=== PATIENT | male | born 1995 | race Caucasian/White ===

== ENCOUNTER 2016-08-04 13:17 | Emergency (ER) | payer BC | END 2016-08-04 17:00 | disposition home or self-care (01) | LOC: D.ER 13:17 | DX: S83.91XA Sprain of unspecified site of right knee, initial encounter (principal); X58.XXXA Exposure to other specified factors, initial encounter; Y93.39 Activity, other involving climbing, rappelling and jumping off; Y92.099 Unspecified place in other non-institutional residence as the place of occurrence of the external cause; F32.9 Major depressive disorder, single episode, unspecified; F17.200 Nicotine dependence, unspecified, uncomplicated ==

== ENCOUNTER 2016-08-08 10:51 | Emergency (ER) | payer BC | END 2016-08-08 11:15 | disposition left against medical advice (07) | LOC: D.ER 10:51 | DX: M25.561 Pain in right knee (principal) ==

== ENCOUNTER 2016-08-13 11:12 | Emergency (ER) | payer BC | END 2016-08-13 11:55 | disposition home or self-care (01) | LOC: D.ER 11:12 | DX: S83.91XA Sprain of unspecified site of right knee, initial encounter (principal); X58.XXXA Exposure to other specified factors, initial encounter; Y93.89 Activity, other specified; Y92.89 Other specified places as the place of occurrence of the external cause; F32.9 Major depressive disorder, single episode, unspecified; F17.200 Nicotine dependence, unspecified, uncomplicated ==

== ENCOUNTER → 2016-08-20 10:10 | Outpatient (CLI) | payer BC | END | disposition home or self-care (01) | LOC: D.MRI 10:10 | DX: M25.561 Pain in right knee (principal) ==

== ENCOUNTER 2016-09-26 12:19 | Emergency (ER) | payer BC | END 2016-09-26 13:54 | disposition home or self-care (01) | LOC: D.ER 12:19 | DX: R51 Headache (principal) ==

== ENCOUNTER 2016-11-07 05:20 | Day surgery (SDC) | payer BC ==
[~2016-11-07] VITALS: Ht 190.5 cm; Wt 81.6 kg
--- NOTE | ~2016-11-07 | OP ---
PATIENT NAME: RL FAM MEDICAL RECORD: [id number] :95 LOCATION:D.OPS ADMISSION DATE: SURGEON: RL GUNTER DO OPERATION DATE: 11/07/16 SURGEON: Rl Gunter DO COUNTER STITCHER: This procedure could not have been performed without the assistance of Tanvi Morales APN. PROCEDURE PERFORMED: Right anterior cruciate ligament reconstruction with hamstring autograft augmented by posterior tibialis allograft. Partial medial meniscectomy. PREPROCEDURE DIAGNOSIS: Right anterior cruciate ligament rupture. POSTPROCEDURE DIAGNOSES: Right anterior cruciate ligament rupture. Right medial meniscus tear. ANESTHESIA: General. TOURNIQUET TIME: 2 hours and 15 minutes. DESCRIPTION OF PROCEDURE: The patient was taken to the operative suite. He was placed in the supine position after informed consent had been obtained in the preoperative area. Anesthesia put him to sleep. Examination of the right knee under anesthesia demonstrated a positive pivot shift test as well as positive Trice's test. The right knee was then prepped and draped in a sterile fashion and the incision for the graft was marked out. This was all done after a timeout was performed and all parties were agreeable that it was the right anterior cruciate ligament reconstruction and the patient was the correct patient and we were operating on the correct side. Antibiotics were given. Vancomycin due to his penicillin allergy. once all parties agreed, the procedure began. A 6 inch El wrap was then used to exsanguinate the leg and the tourniquet was inflated to 250 millimeters of mercury. The incision for the graft over the pes anserine, just medial to the tibial tubercle was marked out. Incision was taken down to the sartorius fascia and it was incised. The gracilis graft was then attempted to be harvested at first, however, it was not adequate graft. The semitendinosus was then harvested and the site of the graft harvest was irrigated and the Ray-Madeleine was placed there. Attention was then drawn to the arthroscopic part of the procedure. The lateral portal was first established and the and the camera was introduced into the lateral portal. The superior pouch was then inspected not revealing any chondral injuries or loose bodies and the patella the same, no chondral injuries or loose bodies. The trochlea again did not have any chondral injuries or loose bodies. Attention was then drawn to the lateral gutter and no loose bodies were found. The popliteal tendon was noted and picture was taken of it. Attention was then drawn over to the medial side and down the medial gutter which was normal and the medial meniscus was noted to have a tear in the posterior area of the medial meniscus at the red/white section of the meniscus. The anterior cruciate ligament was then viewed and seemed to be pulled off of the femoral insertion and was documented by picture. Attention was then drawn to the medial meniscal tear and was probed and due to the patient's age of 20, attempted to be repaired and failed and a partial medial meniscectomy was then performed on a posterior section of the medial meniscus OPERATIVE REPORT [id number] RL FAM proximally. 20% of the posterior medial meniscus was removed at that time. Attention was then drawn to prepping the sites for the femoral tunnel and the medial portal was established prior to this. Once the medial meniscal tear was discovered, the medial portal was established. The attention was drawn to the femoral placement of the tunnel for the anterior cruciate ligament graft. The area was debrided with a shaver and the fat pad as well was debrided from the anterior knee to help with visualization. Medial accessory portal was then established for the femoral tunnel and once adequate visualization was obtained the guide was placed in the origin of the anterior cruciate ligament on the femur. The pin was then inserted and loop suture was placed on the end. After that the graft was prepped on the back table and determined that a 9.5 was the correct size. A 10 reamer was then used to make the tunnel in the femur to approximately 25 millimeters and the beef pin was then passed through the femur where the tunnel was positioned and the suture was caught on the other side. The attention was then drawn to the tibial tunnel. The tibial tunnel was established just at the posterior section of the anterior horn of the lateral meniscus and about 7 millimeters in front of the paced cycle length. Again a size 10 reamer was used establish that tunnel in the tibia using a guide set at 50 degrees into the tibia through the prior incision of the graft. The graft was then passed through the tibia and into the femur as a button flipped from the TightRope suspension system on the lateral femur, suturing it, and securing the graft there. It was then advanced into place using the Toggle system. At that time the graft was tightened on the tibial side and the knee was taken through several ranges of motion. It seemed to slightly impinge on the lateral condyle of the femur. Wall plasty was performed as well as small debridement of the graft so it would not impinge. It was noted to be in great position and did not impinge through range of motion. The knee was then held in extension and a size 10 bioabsorbable screw was placed into the tibial tunnel to secure the graft on the tibial side. The scope was then reinserted into the knee and confirmed placement of the graft. The graft was probed and noted to be taut. Trice and pivot shift was then performed on the patient and noted to have a solid endpoint. The excess graft that was hanging out the incision on the tibia was then removed using 11 blade. The graft site was then irrigated copiously with saline and closed. The tourniquet was let down at this time, as it was let down in the middle of the procedure as well and then reinflated with a total time of 2 hours and 15 minutes. The incision over the grafts was then closed with 2-0 Vicryl and 4-0 Monocryl as well as the portals for the scope on the knee. Dressings were put on, Adaptic, 4x4s, and ABD as well as an El wrap and placed into a knee immobilizer. He was awoken and taken to the Post Anesthesia Care Unit in stable condition. RL GUNTER DO CC: [id number] DICTATION DATE: 11/07/16 1200 HEAD CUSTODIAN: DM 11/11/16 0845 [facility] 11/07/16 [place] [id number] [place] [id number]
[~2016-11-07 05:20] MED LIST: HYDROCODONE-APA1 TAB PO
[2016-11-07 06:18] VITALS: BP 103/52; Ht 190.5 cm; Wt 81.6 kg
[2016-11-07] MEDS ORDERED: PERCOCET 5-3251 TAB PO (11:31)
[2016-11-07] MEDS ORDERED: TORADOL10 MG PO (11:32)
[2016-11-07] MEDS ORDERED: BACTRIM DS TABL1 TAB PO (11:33)
--- NOTE | 2016-11-07 11:51 | NUR ---
RECIEVED PT FROM OR, NOTED PT WITH SHAKES ON ARRIVAL, TEMP 95.5 TEMPORAL RECHECKED AXILLARY SAME READING NOTED. ADRY HUGGER BLANKET APPLIED TO WARM PT.
== END 2016-11-07 14:45 | disposition home or self-care (01) ==
LOC: D.OPS 05:20 → D.PAN 07:30 → D.OPS 14:45
DX: S83.511A Sprain of anterior cruciate ligament of right knee, initial encounter (principal); S83.241A Other tear of medial meniscus, current injury, right knee, initial encounter; Z01.812 Encounter for preprocedural laboratory examination

== ENCOUNTER 2017-02-19 12:46 | Emergency (ER) | payer BC ==
[2016-11-07 06:18] VITALS: BMI 22.5
[~2017-02-19 12:46] MED LIST changes: +BACTRIM DS TABL1 TAB PO; +PERCOCET 5-3251 TAB PO; +TORADOL10 MG PO
[2017-02-19 13:42] LABS: BASOPHILS 0.1 % (0-2); HEMOGLOBIN 15.7 g/dL (13.5-17.5); IMMATURE GRANULOCYTES 0.1 % (0-5); LYMPHOCYTES 28.4 % (15-50); MCH 30.3 pg (26.0-34.0); MCHC 34.1 g/dL (31.0-37.0); MCV 88.6 fL (80.0-100.0); MEAN PLATELET VOLUME 9.5 fL (7.4-10.4); MONOCYTES 9.4 % (2-11); PLATELET COUNT 223 10x3/uL (130-400); RBC 5.19 10x6/uL (4.20-6.10); RDW 12.6 % (11.5-14.5)
[2017-02-19 14:00] LABS: APPEARANCE CLEAR (CLEAR); BILIRUBIN NEGATIVE (NEGATIVE); COLOR YELLOW (YELLOW); GLUCOSE NEGATIVE (NEGATIVE); KETONE NEGATIVE (NEGATIVE); NITRITE NEGATIVE (NEGATIVE); PROTEIN NEGATIVE (NEGATIVE); UROBILINOGEN NORMAL (NORMAL)
[2017-02-19 14:06] LABS: ALBUMIN 4.6 g/dL (3.4-5.0); ALKALINE PHOSPHATASE 64 U/L (46-116); BILIRUBIN - TOTAL 0.42 mg/dL (0.2-1.3); CALC OSMOLALITY 276 mosm/kg (275-300); CHLORIDE - SERUM 104 mmol/L (98-107); CREATININE - SERUM 0.9 mg/dL (0.6-1.3); GLUCOSE 99 mg/dL (74-106); PROTEIN - SERUM 8.7 g/dL (6.4-8.2); SODIUM 138 mmol/L (136-145); UREA NITROGEN 14 mg/dL (7-18); eGFR NON AFRICAN AMERICAN > 90 mL/min (90-120)
[2017-02-19 14:08] LABS: UDS - AMPHET NEGATIVE QUAL (NEGATIVE); UDS - BARB NEGATIVE QUAL (NEGATIVE); UDS - BENZO NEGATIVE QUAL (NEGATIVE); UDS - COCAINE NEGATIVE QUAL (NEGATIVE); UDS - OPIATE NEGATIVE QUAL (NEGATIVE); UDS - PCP NEGATIVE QUAL (NEGATIVE); UDS - THC POSITIVE QUAL (NEGATIVE)
[2017-02-19 14:16] LABS: ALT (SGPT) 12 U/L (10-68)
== END 2017-02-19 18:36 | disposition short-term general hospital (02) ==
LOC: D.ER 12:46
PROVIDERS: Emergency Medicine
DX: F41.0 Panic disorder [episodic paroxysmal anxiety] (principal)

== ENCOUNTER 2017-02-26 02:46 | Emergency (ER) | payer BC ==
[2016-11-07 06:18] VITALS: BMI 22.5
== END 2017-02-26 03:36 | disposition home or self-care (01) ==
LOC: D.ER 02:46
DX: S93.402A Sprain of unspecified ligament of left ankle, initial encounter (principal); W10.9XXA Fall (on) (from) unspecified stairs and steps, initial encounter; Y93.89 Activity, other specified; Y92.029 Unspecified place in mobile home as the place of occurrence of the external cause

== ENCOUNTER 2017-03-05 22:58 | Emergency (ER) | payer BC ==
[2016-11-07 06:18] VITALS: BMI 22.5
[2017-03-05 23:51] LABS: BASOPHILS 0.1 % (0-2); EOSINOPHILS 1.3 % (0-7); HEMATOCRIT 42.7 % (42.0-54.0); HEMOGLOBIN 14.4 g/dL (13.5-17.5); IMMATURE GRANULOCYTES 0.1 % (0-5); LYMPHOCYTES 30.9 % (15-50); MCH 30.1 pg (26.0-34.0); MCHC 33.7 g/dL (31.0-37.0); MCV 89.3 fL (80.0-100.0); MEAN PLATELET VOLUME 9.3 fL (7.4-10.4); MONOCYTES 9.7 % (2-11); NEUTROPHILS 57.9 % (40-80); RBC 4.78 10x6/uL (4.20-6.10); RDW 12.8 % (11.5-14.5); WBC 7.6 10x3/uL (4.8-10.8)
[2017-03-05 23:53] LABS: APPEARANCE CLEAR (CLEAR); BILIRUBIN NEGATIVE (NEGATIVE); COLOR YELLOW (YELLOW); GLUCOSE NEGATIVE (NEGATIVE); KETONE NEGATIVE (NEGATIVE); NITRITE NEGATIVE (NEGATIVE); PROTEIN NEGATIVE (NEGATIVE); SPECIFIC GRAVITY 1.015 (1.005-1.020); UROBILINOGEN NORMAL (NORMAL)
[2017-03-05 23:57] LABS: PLATELET COUNT 157 10x3/uL (130-400)
[2017-03-06 00:02] LABS: ALBUMIN 3.9 g/dL (3.4-5.0); ALKALINE PHOSPHATASE 61 U/L (46-116); ALT (SGPT) 23 U/L (10-68); BILIRUBIN - TOTAL 0.32 mg/dL (0.2-1.3); CALC OSMOLALITY 283 mosm/kg (275-300); CALCIUM 9.3 mg/dL (8.5-10.1); CARBON DIOXIDE 31.1 mmol/L (21.0-32.0); CHLORIDE - SERUM 103 mmol/L (98-107); CREATININE - SERUM 0.9 mg/dL (0.6-1.3); GLUCOSE 89 mg/dL (74-106); POTASSIUM - SERUM 3.6 mmol/L (3.5-5.1); SODIUM 142 mmol/L (136-145); UREA NITROGEN 17 mg/dL (7-18); eGFR NON AFRICAN AMERICAN > 90 mL/min (90-120)
[2017-03-06 00:04] LABS: UDS - AMPHET NEGATIVE QUAL (NEGATIVE); UDS - BARB NEGATIVE QUAL (NEGATIVE); UDS - BENZO NEGATIVE QUAL (NEGATIVE); UDS - COCAINE NEGATIVE QUAL (NEGATIVE); UDS - OPIATE POSITIVE QUAL (NEGATIVE); UDS - PCP NEGATIVE QUAL (NEGATIVE); UDS - THC POSITIVE QUAL (NEGATIVE)
[2017-03-06 00:14] LABS: VALPROIC ACID (DEPAKOTE) 51.3 ug/mL (50.0-100.0)
== END 2017-03-06 01:01 | disposition home or self-care (01) ==
LOC: D.ER 22:58
PROVIDERS: Emergency Medicine
DX: F45.8 Other somatoform disorders (principal); R11.2 Nausea with vomiting, unspecified; T65.891A Toxic effect of other specified substances, accidental (unintentional), initial encounter

== ENCOUNTER 2017-04-05 20:09 | Emergency (ER) | payer BC ==
[2016-11-07 06:18] VITALS: BMI 22.5
== END 2017-04-05 21:50 | disposition home or self-care (01) ==
LOC: D.ER 20:09
DX: K04.7 Periapical abscess without sinus (principal); K08.89 Other specified disorders of teeth and supporting structures; F17.200 Nicotine dependence, unspecified, uncomplicated

== ENCOUNTER 2017-09-20 14:04 | Emergency (ER) | payer BC ==
[2016-11-07 06:18] VITALS: BMI 22.5
[2017-09-20 15:12] LABS: BASOPHILS 0.1 % (0-2); EOSINOPHILS 0.1 % (0-7); HEMATOCRIT 41.1 % (42.0-54.0); HEMOGLOBIN 14.5 g/dL (13.5-17.5); IMMATURE GRANULOCYTES 0.2 % (0-5); LYMPHOCYTES 10.8 % (15-50); MCH 30.9 pg (26.0-34.0); MCHC 35.3 g/dL (31.0-37.0); MCV 87.6 fL (80.0-100.0); MONOCYTES 16.6 % (2-11); NEUTROPHILS 72.2 % (40-80); PLATELET COUNT 224 10x3/uL (130-400); RBC 4.69 10x6/uL (4.20-6.10); RDW 13.7 % (11.5-14.5); WBC 9.2 10x3/uL (4.8-10.8)
[2017-09-20 16:15] LABS: ALBUMIN 4.4 g/dL (3.4-5.0); ALKALINE PHOSPHATASE 51 U/L (46-116); ALT (SGPT) 15 U/L (10-68); BILIRUBIN - TOTAL 0.72 mg/dL (0.2-1.3); CALC OSMOLALITY 273 mosm/kg (275-300); CALCIUM 9.7 mg/dL (8.5-10.1); CARBON DIOXIDE 25.5 mmol/L (21.0-32.0); CHLORIDE - SERUM 101 mmol/L (98-107); CREATININE - SERUM 1.2 mg/dL (0.6-1.3); GLUCOSE 83 mg/dL (74-106); POTASSIUM - SERUM 3.2 mmol/L (3.5-5.1); SODIUM 137 mmol/L (136-145); UREA NITROGEN 14 mg/dL (7-18); eGFR NON AFRICAN AMERICAN 81 mL/min (90-120)
== END 2017-09-20 16:30 | disposition home or self-care (01) ==
LOC: D.ER 14:04
PROVIDERS: Physician Assistant
DX: R51 Headache (principal); R11.2 Nausea with vomiting, unspecified; M54.2 Cervicalgia; M54.6 Pain in thoracic spine; R07.81 Pleurodynia; M25.551 Pain in right hip; M79.661 Pain in right lower leg; W13.2XXA Fall from, out of or through roof, initial encounter; Y93.89 Activity, other specified; Y92.89 Other specified places as the place of occurrence of the external cause; F17.200 Nicotine dependence, unspecified, uncomplicated

== ENCOUNTER 2017-09-23 11:17 | Emergency (ER) | payer BC ==
[2016-11-07 06:18] VITALS: BMI 22.5
[2017-09-23 13:52] LABS: BASOPHILS 0.2 % (0-2); EOSINOPHILS 0 % (0-7); HEMATOCRIT 40.7 % (42.0-54.0); IMMATURE GRANULOCYTES 0.2 % (0-5); MCH 30.6 pg (26.0-34.0); MCHC 34.4 g/dL (31.0-37.0); MCV 89.1 fL (80.0-100.0); MEAN PLATELET VOLUME 9.7 fL (7.4-10.4); MONOCYTES 12.8 % (2-11); NEUTROPHILS 67.8 % (40-80); RBC 4.57 10x6/uL (4.20-6.10); RDW 13.6 % (11.5-14.5); WBC 6.5 10x3/uL (4.8-10.8)
[2017-09-23 13:54] LABS: PLATELET COUNT 127 10x3/uL (130-400)
[2017-09-23 14:07] LABS: MONO NEGATIVE (NEGATIVE)
[2017-09-23 14:09] LABS: ALBUMIN 3.7 g/dL (3.4-5.0); ALKALINE PHOSPHATASE 44 U/L (46-116); ALT (SGPT) 20 U/L (10-68); BILIRUBIN - TOTAL 0.34 mg/dL (0.2-1.3); CALC OSMOLALITY 273 mosm/kg (275-300); CALCIUM 9.1 mg/dL (8.5-10.1); CARBON DIOXIDE 26.4 mmol/L (21.0-32.0); CHLORIDE - SERUM 102 mmol/L (98-107); CREATININE - SERUM 0.8 mg/dL (0.6-1.3); GLUCOSE 99 mg/dL (74-106); POTASSIUM - SERUM 4.2 mmol/L (3.5-5.1); PROTEIN - SERUM 7.7 g/dL (6.4-8.2); SODIUM 137 mmol/L (136-145); UREA NITROGEN 13 mg/dL (7-18); eGFR NON AFRICAN AMERICAN > 90 mL/min (90-120)
[2017-09-23 14:34] LABS: APPEARANCE CLEAR (CLEAR); BILIRUBIN NEGATIVE (NEGATIVE); COLOR YELLOW (YELLOW); GLUCOSE NEGATIVE (NEGATIVE); KETONE NEGATIVE (NEGATIVE); NITRITE NEGATIVE (NEGATIVE); PROTEIN NEGATIVE (NEGATIVE); UROBILINOGEN NORMAL (NORMAL)
[2017-09-23 16:31] LABS: CKMB 0.2 U/L (0.0-3.6); CREATINE KINASE 57 UL (21-232); TROPONIN-I < 0.017 ng/mL (0.000-0.060)
[2017-09-24 14:22] LABS: EBV - EARLY ANTIGEN AB IGG <9.0 U/mL (0.0-8.9); EBV - NUCLEAR ANTIGEN AB IGG >600.0 U/mL (0.0-17.9); EBV VIRAL CAPSID AB IGM <36.0 U/mL (0.0-35.9)
== END 2017-09-23 16:17 | disposition home or self-care (01) ==
LOC: D.ER 11:17
PROVIDERS: Family Medicine
DX: B34.9 Viral infection, unspecified (principal); R53.83 Other fatigue; R53.81 Other malaise

== ENCOUNTER 2017-11-16 17:34 | Emergency (ER) | payer BC ==
[~2017-11-16] VITALS: Ht 190.5 cm; Wt 81.8 kg
[2017-11-16 17:36] VITALS: Ht 190.5 cm; Wt 81.8 kg
[2017-11-16] MEDS ORDERED: KLONOPIN1 MG PO (17:37)
[2017-11-16] MEDS ORDERED: IBUPROFEN800 MG PO (18:32)
[2017-11-16 18:42] VITALS: BP 105/67
== END 2017-11-16 18:42 | disposition home or self-care (01) ==
LOC: D.ER 17:34
DX: S63.502A Unspecified sprain of left wrist, initial encounter (principal); W19.XXXA Unspecified fall, initial encounter; Y93.89 Activity, other specified; Y92.019 Unspecified place in single-family (private) house as the place of occurrence of the external cause; F17.200 Nicotine dependence, unspecified, uncomplicated

== ENCOUNTER 2018-01-05 23:28 | Emergency (ER) | payer BC ==
[~2018-01-05] VITALS: Ht 190.5 cm; Wt 80.0 kg
[~2018-01-05 23:28] MED LIST changes: +IBUPROFEN800 MG PO; +KLONOPIN1 MG PO
[2018-01-05 23:37] VITALS: Ht 190.5 cm; Wt 80.0 kg
[2018-01-06 00:13] LABS: HEMOGLOBIN 15.3 g/dL (13.5-17.5); LYMPHOCYTES 28.2 % (15-50); MCHC 35.6 g/dL (31.0-37.0); MCV 87.2 fL (80.0-100.0); MEAN PLATELET VOLUME 9.2 fL (7.4-10.4); NEUTROPHILS 66.9 % (40-80); RBC 4.93 10x6/uL (4.20-6.10); RDW 13.3 % (11.5-14.5)
[2018-01-06 00:14] LABS: APPEARANCE CLEAR (CLEAR); COLOR YELLOW (YELLOW); GLUCOSE NEGATIVE (NEGATIVE); KETONE NEGATIVE (NEGATIVE); NITRITE NEGATIVE (NEGATIVE); PLATELET COUNT 205 10x3/uL (130-400); PROTEIN NEGATIVE (NEGATIVE); SPECIFIC GRAVITY 1.015 (1.005-1.020)
[2018-01-06 00:15] LABS: BILIRUBIN NEGATIVE (NEGATIVE); UROBILINOGEN NORMAL (NORMAL)
[2018-01-06 00:22] LABS: UDS - AMPHET NEGATIVE QUAL (NEGATIVE); UDS - BARB NEGATIVE QUAL (NEGATIVE); UDS - BENZO NEGATIVE QUAL (NEGATIVE); UDS - COCAINE NEGATIVE QUAL (NEGATIVE); UDS - OPIATE NEGATIVE QUAL (NEGATIVE); UDS - PCP NEGATIVE QUAL (NEGATIVE); UDS - THC POSITIVE QUAL (NEGATIVE)
[2018-01-06 00:28] LABS: ALBUMIN 4.4 g/dL (3.4-5.0); ALKALINE PHOSPHATASE 62 U/L (46-116); ALT (SGPT) 14 U/L (10-68); CALC OSMOLALITY 285 mosm/kg (275-300); CALCIUM 8.8 mg/dL (8.5-10.1); CARBON DIOXIDE 29.6 mmol/L (21.0-32.0); CHLORIDE - SERUM 105 mmol/L (98-107); GLUCOSE 100 mg/dL (74-106); POTASSIUM - SERUM 3.9 mmol/L (3.5-5.1); PROTEIN - SERUM 8.4 g/dL (6.4-8.2); SODIUM 143 mmol/L (136-145); UREA NITROGEN 14 mg/dL (7-18); eGFR NON AFRICAN AMERICAN > 90 mL/min (90-120)
[2018-01-06 00:32] LABS: THYROID STIMULATING HORMONE 1.34 uIU/mL (0.36-3.74)
[2018-01-06 03:33] VITALS: BP 127/74
== END 2018-01-06 03:33 ==
LOC: D.ER 23:28
PROVIDERS: Family Medicine
DX: R45.851 Suicidal ideations (principal); F41.9 Anxiety disorder, unspecified; F32.9 Major depressive disorder, single episode, unspecified; F17.200 Nicotine dependence, unspecified, uncomplicated

== ENCOUNTER 2018-09-02 14:58 | Emergency (ER) | payer BC ==
[~2018-09-02] VITALS: Ht 190.5 cm; Wt 75.0 kg
[2018-09-02 15:19] VITALS: Ht 190.5 cm; Wt 75.0 kg
[2018-09-02 15:48] LABS: BASOPHILS 0.3 % (0-2); HEMATOCRIT 43.8 % (42.0-54.0); HEMOGLOBIN 14.7 g/dL (13.5-17.5); IMMATURE GRANULOCYTES 0.1 % (0-5); LYMPHOCYTES 27.8 % (15-50); MCH 30.3 pg (26.0-34.0); MCHC 33.6 g/dL (31.0-37.0); MCV 90.3 fL (80.0-100.0); MEAN PLATELET VOLUME 9.3 fL (7.4-10.4); MONOCYTES 6.5 % (2-11); NEUTROPHILS 64.3 % (40-80); PLATELET COUNT 190 10x3/uL (130-400); RBC 4.85 10x6/uL (4.20-6.10); RDW 13.6 % (11.5-14.5)
[2018-09-02 16:13] LABS: ALBUMIN 4.2 g/dL (3.4-5.0); ALKALINE PHOSPHATASE 42 U/L (46-116); ALT (SGPT) 12 U/L (10-68); BILIRUBIN - TOTAL 0.29 mg/dL (0.2-1.3); CALC OSMOLALITY 279 mosm/kg (275-300); CALCIUM 9.7 mg/dL (8.5-10.1); CARBON DIOXIDE 28.3 mmol/L (21.0-32.0); CHLORIDE - SERUM 104 mmol/L (98-107); GLUCOSE 103 mg/dL (74-106); POTASSIUM - SERUM 4.5 mmol/L (3.5-5.1); SODIUM 140 mmol/L (136-145); UREA NITROGEN 16 mg/dL (7-18); eGFR NON AFRICAN AMERICAN > 90 mL/min (90-120)
[2018-09-02 16:27] LABS: APPEARANCE SL CLDY (CLEAR); BILIRUBIN NEGATIVE (NEGATIVE); COLOR STRAW (YELLOW); GLUCOSE NEGATIVE (NEGATIVE); KETONE NEGATIVE (NEGATIVE); NITRITE NEGATIVE (NEGATIVE); PROTEIN NEGATIVE (NEGATIVE); UROBILINOGEN NORMAL (NORMAL)
[2018-09-02] MEDS ORDERED: DOXYCYCLINE HY100 M2 PO (16:53)
[2018-09-02] MEDS ORDERED: CYCLOBENZAPRINE10 MG PO (16:53)
[2018-09-02] MEDS ORDERED: IBUPROFEN800 MG PO (16:53)
[2018-09-02] MEDS ORDERED: ACETAMINOPHEN500 M1 PO (16:53)
[2018-09-02 17:29] VITALS: BP 128/61
[2018-09-07 15:12] LABS: RMSF IGM 0.88 index (0.00-0.89)
== END 2018-09-02 17:29 | disposition home or self-care (01) ==
LOC: D.ER 14:58
PROVIDERS: Family Medicine
DX: M54.5 Low back pain (principal); R07.81 Pleurodynia; T14.8XXA Other injury of unspecified body region, initial encounter; W57.XXXA Bitten or stung by nonvenomous insect and other nonvenomous arthropods, initial encounter; Y93.89 Activity, other specified; Y92.89 Other specified places as the place of occurrence of the external cause

== ENCOUNTER 2018-12-30 12:21 | Emergency (ER) | payer BC ==
[~2018-12-30] VITALS: Ht 190.5 cm; Wt 75.9 kg
[~2018-12-30 12:21] MED LIST changes: +ACETAMINOPHEN500 M1 PO; +CYCLOBENZAPRINE10 MG PO; +DOXYCYCLINE HY100 M2 PO
[2018-12-30 12:59] VITALS: Ht 190.5 cm; Wt 75.9 kg
[2018-12-30] MEDS ORDERED: SEROQUEL50 MG PO (13:03)
[2018-12-30 15:58] LABS: BASOPHILS 0.1 % (0-2); EOSINOPHILS 2.3 % (0-7); HEMATOCRIT 43.2 % (42.0-54.0); HEMOGLOBIN 14.9 g/dL (13.5-17.5); IMMATURE GRANULOCYTES 0.1 % (0-5); LYMPHOCYTES 31.6 % (15-50); MCH 31.2 pg (26.0-34.0); MCHC 34.5 g/dL (31.0-37.0); MCV 90.6 fL (80.0-100.0); MONOCYTES 8.5 % (2-11); NEUTROPHILS 57.4 % (40-80); PLATELET COUNT 173 10x3/uL (130-400); RBC 4.77 10x6/uL (4.20-6.10); RDW 13.7 % (11.5-14.5); WBC 7.3 10x3/uL (4.8-10.8)
[2018-12-30 16:10] LABS: APPEARANCE CLOUDY (CLEAR); BILIRUBIN NEGATIVE (NEGATIVE); COLOR YELLOW (YELLOW); GLUCOSE NEGATIVE (NEGATIVE); KETONE NEGATIVE (NEGATIVE); NITRITE NEGATIVE (NEGATIVE); PROTEIN NEGATIVE (NEGATIVE); UROBILINOGEN NORMAL (NORMAL)
[2018-12-30 16:12] LABS: WHITE CELLS - URINE 0-5 /hpf (0-5)
[2018-12-30 16:13] LABS: AMORPHOUS SEDIMENT >1+ /lpf (NONE SEEN); BACTERIA FEW /hpf (NONE SEEN); RED CELLS - URINE RARE /hpf (0-5)
[2018-12-30 16:22] LABS: UDS - AMPHET NEGATIVE QUAL (NEGATIVE); UDS - BARB NEGATIVE QUAL (NEGATIVE); UDS - BENZO NEGATIVE QUAL (NEGATIVE); UDS - COCAINE NEGATIVE QUAL (NEGATIVE); UDS - OPIATE NEGATIVE QUAL (NEGATIVE); UDS - PCP NEGATIVE QUAL (NEGATIVE); UDS - THC NEGATIVE QUAL (NEGATIVE)
[2018-12-30 16:27] LABS: ALBUMIN 3.8 g/dL (3.4-5.0); ALKALINE PHOSPHATASE 48 U/L (46-116); ALT (SGPT) 17 U/L (10-68); BILIRUBIN - TOTAL 0.43 mg/dL (0.2-1.3); CALC OSMOLALITY 283 mosm/kg (275-300); CARBON DIOXIDE 32.4 mmol/L (21.0-32.0); CHLORIDE - SERUM 106 mmol/L (98-107); GLUCOSE 86 mg/dL (74-106); POTASSIUM - SERUM 4.2 mmol/L (3.5-5.1); PROTEIN - SERUM 6.4 g/dL (6.4-8.2); SODIUM 143 mmol/L (136-145); UREA NITROGEN 12 mg/dL (7-18); eGFR NON AFRICAN AMERICAN > 90 mL/min (90-120)
[2018-12-30 16:39] LABS: CKMB 0.4 U/L (0.0-3.6); CREATINE KINASE 84 UL (21-232); TROPONIN-I < 0.017 ng/mL (0.000-0.060)
[2018-12-30 17:44] VITALS: BP 112/54
== END 2018-12-30 17:45 | disposition home or self-care (01) ==
LOC: D.ER 12:21
PROVIDERS: Family Medicine
DX: R07.89 Other chest pain (principal); F41.9 Anxiety disorder, unspecified; R53.81 Other malaise

== ENCOUNTER 2019-09-21 14:39 | Emergency (ER) | payer OTHER ==
[~2019-09-21] VITALS: Ht 190.5 cm; Wt 77.3 kg
[~2019-09-21 14:39] MED LIST changes: +CLEOCIN HCL300 MG PO; +SEROQUEL50 MG PO; +VOLTAREN75 MG PO
[2019-09-21 14:56] VITALS: Ht 190.5 cm; Wt 77.3 kg
[2019-09-21 15:58] LABS: BASOPHILS 0.2 % (0-2); EOSINOPHILS 4.2 % (0-7); HEMATOCRIT 40.9 % (42.0-54.0); HEMOGLOBIN 13.6 g/dL (13.5-17.5); IMMATURE GRANULOCYTES 0.2 % (0-5); LYMPHOCYTES 24.8 % (15-50); MCH 30.2 pg (26.0-34.0); MCHC 33.3 g/dL (31.0-37.0); MCV 90.9 fL (80.0-100.0); MEAN PLATELET VOLUME 9.3 fL (7.4-10.4); MONOCYTES 11.6 % (2-11); PLATELET COUNT 208 10x3/uL (130-400); RDW 12.8 % (11.5-14.5); WBC 8.4 10x3/uL (4.8-10.8)
[2019-09-21 16:11] LABS: CALC OSMOLALITY 278 mosm/kg (275-300); CALCIUM 8.9 mg/dL (8.5-10.1); CARBON DIOXIDE 28.8 mmol/L (21.0-32.0); CHLORIDE - SERUM 105 mmol/L (98-107); GLUCOSE 84 mg/dL (74-106); POTASSIUM - SERUM 3.5 mmol/L (3.5-5.1); SODIUM 141 mmol/L (136-145); UREA NITROGEN 9 mg/dL (7-18); eGFR NON AFRICAN AMERICAN > 90 mL/min (90-120)
[2019-09-21 16:17] LABS: INR 1.13 (0.85-1.17); PROTIME 14.4 SECONDS (11.6-15.0)
[2019-09-21 16:18] LABS: D-DIMER-QUANTITATIVE 1.04 ug/mLFEU (0.20-0.54)
[2019-09-21 16:31] LABS: ALBUMIN 3.7 g/dL (3.4-5.0); ALKALINE PHOSPHATASE 45 U/L (30-120); ALT (SGPT) 14 U/L (10-68); C-REACTIVE PROTEIN 3.2 mg/dL (0.0-0.9); CKMB 0.2 U/L (0.0-3.6); CREATINE KINASE 747 UL (21-232); FERRITIN 51 ng/mL (3-244); PRO BNP 423 pg/mL (0-125); PROTEIN - SERUM 7.2 g/dL (6.4-8.2)
[2019-09-21 16:32] LABS: TROPONIN-I < 0.017 ng/mL (0.000-0.060)
[2019-09-21 18:05] LABS: ERYTHROCYTE SEDIMENTATION RATE 7 mm/hr (0-15)
[2019-09-21] MEDS ORDERED: LEVAQUIN750 MG PO (18:19)
[2019-09-21] MEDS ORDERED: MEDROL DOSE PACK4 MG PO (18:19)
[2019-09-21] MEDS ORDERED: VENTOLIN HFA [SP8 GM INH (18:19)
[2019-09-21 18:35] VITALS: BP 121/77
== END 2019-09-21 18:35 | disposition home or self-care (01) ==
LOC: D.ER 14:39
PROVIDERS: Family Medicine
DX: J18.1 Lobar pneumonia, unspecified organism (principal); R05 Cough; R06.02 Shortness of breath; R50.9 Fever, unspecified; Z72.0 Tobacco use; R53.1 Weakness

== ENCOUNTER 2020-01-21 20:00 | Emergency (ER) | payer OTHER ==
[~2020-01-21] VITALS: Ht 190.5 cm; Wt 77.1 kg
[~2020-01-21 20:00] MED LIST changes: +LEVAQUIN750 MG PO; +MEDROL DOSE PACK4 MG PO; +VENTOLIN HFA [SP8 GM INH
[2020-01-21 20:05] VITALS: Ht 190.5 cm; Wt 77.1 kg
[2020-01-21] MEDS ORDERED: KLONOPIN0.5 MG (20:13)
[2020-01-21] MEDS ORDERED: TRAZODONE HCL100 MG PO (20:13)
[2020-01-21 20:37] LABS: BASOPHILS 0.4 % (0-2); HEMATOCRIT 42.5 % (42.0-54.0); HEMOGLOBIN 14.3 g/dL (13.5-17.5); IMMATURE GRANULOCYTES 0.1 % (0-5); LYMPHOCYTES 26.5 % (15-50); MCH 30.2 pg (26.0-34.0); MCHC 33.6 g/dL (31.0-37.0); MCV 89.9 fL (80.0-100.0); MEAN PLATELET VOLUME 9.3 fL (7.4-10.4); MONOCYTES 6.9 % (2-11); NEUTROPHILS 61.1 % (40-80); PLATELET COUNT 182 10x3/uL (130-400); RBC 4.73 10x6/uL (4.20-6.10); RDW 13.5 % (11.5-14.5)
[2020-01-21 20:45] LABS: CALC OSMOLALITY 275 mosm/kg (275-300); CALCIUM 9.5 mg/dL (8.5-10.1); CARBON DIOXIDE 30.5 mmol/L (21.0-32.0); CHLORIDE - SERUM 105 mmol/L (98-107); CREATININE - SERUM 0.9 mg/dL (0.6-1.3); GLUCOSE 98 mg/dL (74-106); SODIUM 138 mmol/L (136-145); UREA NITROGEN 13 mg/dL (7-18); eGFR NON AFRICAN AMERICAN > 90 mL/min (90-120)
[2020-01-21] MEDS ORDERED: DOXYCYCLINE HY100 M2 PO (20:51)
[2020-01-21 20:53] LABS: ALBUMIN 4.1 g/dL (3.4-5.0); ALKALINE PHOSPHATASE 46 U/L (30-120); ALT (SGPT) 19 U/L (10-68); BILIRUBIN - TOTAL 0.21 mg/dL (0.2-1.3); PROTEIN - SERUM 7.8 g/dL (6.4-8.2)
[2020-01-21 21:03] VITALS: BP 145/69
[2020-01-25 13:11] LABS: EHRLICHIA CHAFF IGG Negative (Neg:<1:64); EHRLICHIA CHAFF IGM Negative (Neg:<1:20); HGE IGG TITER Negative (Neg:<1:64); HGE IGM TITER Negative (Neg:<1:20)
== END 2020-01-21 21:04 | disposition home or self-care (01) ==
LOC: D.ER 20:00
PROVIDERS: Family Medicine
DX: L03.90 Cellulitis, unspecified (principal); S40.861A Insect bite (nonvenomous) of right upper arm, initial encounter; W57.XXXA Bitten or stung by nonvenomous insect and other nonvenomous arthropods, initial encounter; Y93.9 Activity, unspecified; Y92.9 Unspecified place or not applicable

== ENCOUNTER 2020-01-30 23:56 | Emergency (ER) | payer OTHER ==
[~2020-01-30] VITALS: Ht 190.5 cm; Wt 81.8 kg
[~2020-01-30 23:56] MED LIST changes: +KLONOPIN0.5 MG; +TRAZODONE HCL100 MG PO
[2020-01-31 00:02] VITALS: Ht 190.5 cm; Wt 81.8 kg
[2020-01-31] MEDS ORDERED: KLONOPIN0.5 MG PO (00:09)
[2020-01-31 00:25] LABS: BASOPHILS 0.2 % (0-2); EOSINOPHILS 0.2 % (0-7); HEMATOCRIT 42.7 % (42.0-54.0); HEMOGLOBIN 14.5 g/dL (13.5-17.5); IMMATURE GRANULOCYTES 0.2 % (0-5); LYMPHOCYTES 8.6 % (15-50); MCH 30.5 pg (26.0-34.0); MCV 89.7 fL (80.0-100.0); MEAN PLATELET VOLUME 9.3 fL (7.4-10.4); MONOCYTES 7.3 % (2-11); NEUTROPHILS 83.5 % (40-80); PLATELET COUNT 218 10x3/uL (130-400); RBC 4.76 10x6/uL (4.20-6.10); RDW 13.6 % (11.5-14.5); WBC 12.6 10x3/uL (4.8-10.8)
[2020-01-31 00:27] LABS: BILIRUBIN NEGATIVE (NEGATIVE); KETONE MODERATE mg/dL (NEGATIVE); NITRITE NEGATIVE (NEGATIVE); UROBILINOGEN NORMAL mg/dL (< 2)
[2020-01-31 00:35] LABS: CALC OSMOLALITY 278 mosm/kg (275-300); CALCIUM 9.9 mg/dL (8.5-10.1); CARBON DIOXIDE 24.7 mmol/L (21.0-32.0); CHLORIDE - SERUM 105 mmol/L (98-107); CREATININE - SERUM 1.2 mg/dL (0.6-1.3); GLUCOSE 84 mg/dL (74-106); POTASSIUM - SERUM 4.2 mmol/L (3.5-5.1); SODIUM 140 mmol/L (136-145); UREA NITROGEN 14 mg/dL (7-18); eGFR NON AFRICAN AMERICAN 79 mL/min (90-120)
[2020-01-31 00:37] LABS: UDS - AMPHET POSITIVE QUAL (NEGATIVE); UDS - BARB NEGATIVE QUAL (NEGATIVE); UDS - BENZO NEGATIVE QUAL (NEGATIVE); UDS - COCAINE NEGATIVE QUAL (NEGATIVE); UDS - OPIATE NEGATIVE QUAL (NEGATIVE); UDS - PCP NEGATIVE QUAL (NEGATIVE); UDS - THC POSITIVE QUAL (NEGATIVE)
[2020-01-31 00:40] LABS: ALBUMIN 4.5 g/dL (3.4-5.0); ALKALINE PHOSPHATASE 48 U/L (30-120); ALT (SGPT) 13 U/L (10-68); BILIRUBIN - TOTAL 0.54 mg/dL (0.2-1.3); PROTEIN - SERUM 8.3 g/dL (6.4-8.2)
[2020-01-31] MEDS ORDERED: PHENERGAN25 M1 PO (01:24)
[2020-01-31 02:15] VITALS: BP 112/38
== END 2020-01-31 02:02 | disposition home or self-care (01) ==
LOC: D.ER 23:56
PROVIDERS: Family Medicine
DX: R11.2 Nausea with vomiting, unspecified (principal); R10.9 Unspecified abdominal pain

== ENCOUNTER 2020-06-28 18:49 | Emergency (ER) | payer OTHER ==
[~2020-06-28] VITALS: Ht 190.5 cm; Wt 75.1 kg
[~2020-06-28 18:49] MED LIST changes: +KLONOPIN0.5 MG PO; +PHENERGAN25 M1 PO
[2020-06-28 19:08] VITALS: Ht 190.5 cm; Wt 75.1 kg
[2020-06-28] MEDS ORDERED: METHOCARBAMOL500 MG PO (20:58)
[2020-06-28] MEDS ORDERED: TORADOL10 MG PO (20:58)
[2020-06-28 21:10] VITALS: BP 111/62
== END 2020-06-28 21:10 | disposition home or self-care (01) ==
LOC: D.ER 18:49
DX: S39.012A Strain of muscle, fascia and tendon of lower back, initial encounter (principal); W00.9XXA Unspecified fall due to ice and snow, initial encounter; Y93.9 Activity, unspecified; Y92.9 Unspecified place or not applicable; J45.909 Unspecified asthma, uncomplicated; Z72.0 Tobacco use